=== PATIENT | female | born 1945 | race Two or more races ===

== ENCOUNTER 2016-10-10 16:17 | Emergency (ER) | payer MEDICARE, MEDICAID ==
[~2016-10-10] VITALS: Ht 162.6 cm; Wt 73.5 kg
[~2016-10-10 16:17] MED LIST: ALBU8.5H2 IH; AMLO5TAB2 PO; ARIP5TAB4 PO; BUDE10.22 IH; BUSP5TAB3 PO; DEXL60CA3 PO; DULO30CA2 PO; EZET10TA PO; HYDR-3326 PO; ICOS1CAP PO; INSU100V10 SQ; MEMA10TA PO; METF500T4 PO; PRAS10TA5 PO; QUET200T PO; ROSU20TA PO; SITA100T PO; SOLI10TA PO; VALS160T2 PO
--- NOTE | 2016-10-10 16:17 | NUR ---
PT BIB FAMILY, WHEELED TO ER BED 07 C/O LT SHOULDER AND RT ANKLE PAIN S/P MISSED A STEP WHILE GOING DOWN THE STAIRS AT HOME. DENIES HEAD TRAUMA. NO OTHER COMPLAINTS. VSS. AWAITING MD ANN.
--- NOTE | 2016-10-10 16:48 | NUR ---
DR SHAH AT BEDSIDE FOR EVAL.
[2016-10-10] MEDS ORDERED: HYDROCODONE/APAP 5/325MG 1 EACH TABLET ONE (16:55)
[2016-10-10] MEDS ORDERED: HYDROCODONE/APAP 5/325MG 1 EACH TABLET PO ONE (17:00)
--- NOTE | 2016-10-10 17:43 | NUR ---
RADIOLOGY AT BEDSIDE FOR LT SHOULDER AND RT ANKLE XRAY.
--- NOTE | 2016-10-10 19:06 | NUR ---
TOMAS BARRIGA AT BEDSIDE FOR SPLINT PLACEMENT.
--- NOTE | 2016-10-10 19:11 | NUR ---
Patient discharged to home in stable condition. Written and verbal after care instructions given. Patient verbalizes understanding of instruction.Crutches dispensed. Pt instructed on proper use of crutches. Patient able to demonstrate correct use of crutches.
[2016-10-10 19:12] VITALS: BP 147/91
== END 2016-10-10 19:13 | disposition home or self-care (01) ==
LOC: ER 16:19
DX: M25.571 Pain in right ankle and joints of right foot (principal); E11.9 Type 2 diabetes mellitus without complications; I10 Essential (primary) hypertension; I25.2 Old myocardial infarction; Z79.4 Long term (current) use of insulin; Z85.42 Personal history of malignant neoplasm of other parts of uterus; Z86.73 Personal history of transient ischemic attack (TIA), and cerebral infarction without residual deficits; W01.0XXA Fall on same level from slipping, tripping and stumbling without subsequent striking against object, initial encounter; Y93.01 Activity, walking, marching and hiking; Y92.89 Other specified places as the place of occurrence of the external cause; Y99.9 Unspecified external cause status
CPT/HCPCS: 29515; 73030; 73610; 99284; A4606; Z7610

== ENCOUNTER 2019-04-14 19:42 | Inpatient (IN) | payer MEDICARE, MEDICAID ==
[~2019-04-14] VITALS: Ht 154.9 cm; Wt 73.6 kg
[~2019-04-14 19:42] MED LIST changes: -ALBU8.5H2 IH; +ALBU8.5H8 IH; -AMLO5TAB2 PO; +AMLO5TAB9 PO; +ARIP5TAB10 PO; -ARIP5TAB4 PO; -EZET10TA PO; +EZET10TA16 PO; -HYDR-3326 PO; +HYDR-3974 PO; +METF-440 PO; -METF500T4 PO; -ROSU20TA PO; +ROSU20TA2 PO; -SOLI10TA PO; +SOLI10TA2 PO
[2019-04-14] MEDS ORDERED: IV NS 0.9% 1,000 ML BAG IV ONE ×2 (20:00→21:30)
[2019-04-14] MEDS ORDERED: ONDANSETRON HCL/PF 4 MG/2 ML VIAL IVP ONE (20:00)
[2019-04-14 20:09] LABS: BASOPHILS # (AUTO) 0.1 /CMM (0.0-0.2); BASOPHILS % (AUTO) 0.9 % (0.0-2.0); EOSINOPHILS % (AUTO) 2.9 % (0.0-6.0); HEMATOCRIT 44 % (33-45); HEMOGLOBIN 14.9 g/dL (11.5-14.8); LYMPHOCYTES % (AUTO) 39.4 % (20.0-44.0); MEAN CORPUSCULAR HGB CONC 34 g/dl (31.0-36.0); MEAN CORPUSCULAR VOLUME 94 fL (82-100); MONOCYTES # (AUTO) 0.7 /CMM (0.1-1.30); MONOCYTES % (AUTO) 6.9 % (2.0-12.0); NEUTROPHILS # (AUTO) 5.1 /CMM (1.8-8.9); NEUTROPHILS % (AUTO) 49.9 % (43.0-81.0); PLATELET COUNT (AUTO) 178 /CMM (150-450); RED BLOOD CELL COUNT(AUTO) 4.73 MIL/uL (4.0-5.2); WHITE BLOOD COUNT (AUTO) 10.2 K/uL (4.3-11.0)
[2019-04-14 20:18] LABS: CALCIUM, SERUM 9.9 mg/dL (8.5-10.1); CARBON DIOXIDE 23 mmol/L (21-32); CHLORIDE 101 mmol/L (98-107); GLUCOSE 222 mg/dL (74-106); POTASSIUM 3.9 mmol/L (3.5-5.1); SODIUM SERUM 137 mmol/L (136-145); UREA NITROGEN, BLOOD 23 mg/dL (7-18)
--- NOTE | 2019-04-14 20:18 | NUR ---
PT TO CT ON [place]
[2019-04-14] MEDS ORDERED: ONDANSETRON HCL/PF 4 MG/2 ML VIAL ONE (20:21)
[2019-04-14 20:24] LABS: ALANINE AMINOTRANSFERASE 39 U/L (12-78); ALBUMIN 4.1 g/dL (3.4-5.0); ALKALINE PHOSPHATASE 85 U/L (46-116); ASPARTATE AMINOTRANSFERASE 18 U/L (15-37); BILIRUBIN,DIRECT 0.1 mg/dL (0.0-0.2); BILIRUBIN,TOTAL 0.3 mg/dL (0.2-1.0); LIPASE 236 U/L (73-393); TOTAL PROTEIN, SERUM 7.9 g/dL (6.4-8.2)
--- NOTE | 2019-04-14 20:27 | NUR ---
PT BIB [facility]. TO ER BED 10. AAOX4. NO RESP DISTRESS NOTED. KAZAKH SPEAKING. NO FAMILY AT BEDSIDE. PER EMS PER, PT WAS NEAR SYNCOP[place] WHEN SHE WAS AT [facility]. PT GOT WEAK AND DAUGHTER ASSISTED HER TO GO DOWN. NO PASS OUT. TO TRAUMA. NO NOTED INJURY UPON PRESENTATION. MD WAS AT BEDSIDE FOR EVAL. ORDERS RECEIVED, NOTED AND CARRIED OUT.
--- NOTE | 2019-04-14 20:29 | NUR ---
PER EMS REPORT, PT RECEIVED 200CC IN [facility].
--- NOTE | 2019-04-14 20:56 | NUR ---
ANDREA SPEAKING WITH DR LUNA
[2019-04-14] MEDS ORDERED: ASPIRIN 325 MG TABLET PO ONE (21:00)
--- NOTE | 2019-04-14 21:00 | NUR ---
PT NOTED WITH ON RA. PLACE ON 2LPM VIA NC. MD AWARE Addendum: 04/14/19 at 2142 by EDAN PT SATTING AT 93%, NO RESP DISTRESS NOTED
--- NOTE | 2019-04-14 21:13 | NUR ---
327-2 [facility]
[2019-04-14] MEDS ORDERED: IV D5/ 0.9% NACL 1,000 ML IV PRN (21:30)
[2019-04-14] MEDS ORDERED: MORPHINE SULFATE INJ 2 MG/ML DISP.SYRIN IV PRN (21:30)
[2019-04-14] MEDS ORDERED: ONDANSETRON HCL/PF 4 MG/2 ML VIAL IVP PRN (21:30)
[2019-04-14] MEDS ORDERED: ALBUTEROL SULFATE INH 18 GM HFA.AER.AD IH PRN (21:30)
[2019-04-14 21:36] LABS: APPEARANCE,URINE Clear (CLEAR); BILIRUBIN,URINE SMALL (NEGATIVE); BLOOD, URINE Negative Ery/uL (NEGATIVE); COLOR,URINE Yellow (YELLOW); KETONES,URINE Trace (NEGATIVE); LEUKOCYTE ESTERASE ,URINE Negative (NEGATIVE); NITRITE, URINE Negative (NEGATIVE); PROTEIN,URINE 100 mg/dl (NEGATIVE); UGLUCOSE 500 MG/DL mg/dL (NEGATIVE); UROBILINOGEN,URINE 0.2 EU/dL (0.2)
[2019-04-14] MEDS ORDERED: ASPIRIN 325 MG TABLET ONE (21:46)
[2019-04-14 21:48] LABS: RBC,URINE 0-2 /HPF (0-2)
[2019-04-14 21:49] LABS: BACTERIA,URINE None seen /HPF (None Seen); MUCUS,URINE Many /LPF (None Seen); SQUAMOUS EPITHELIAL CELL,UR Many /HPF (None Seen); YEAST,URINE Few /HPF (None Seen)
--- NOTE | 2019-04-14 21:58 | NUR ---
US AT BEDSIDE
--- NOTE | 2019-04-14 22:22 | NUR ---
REPORT GIVEN TO KAREN HAY FOR VENU. PT TO 327-2
--- NOTE | 2019-04-14 22:29 | NUR ---
PT TO UNIT ON [facility] WITH EMT AT BEDSIDE. NAD NOTED. FAMILY AT BEDSIDE.
[2019-04-14 22:30] VITALS: BP 115/77
--- NOTE | 2019-04-14 22:40 | NUR ---
FELLED SEAM OPERATOR CHAINSTITCH ADMITTING NOTES RECEIVED PT FROM ER VIA [facility] [place], ABLE TO AMBULATE TO BED FROM [facility] [place], AWAKE ALERT ORIENTED X4, YAKUT SPEAKING. BREATHING EVEN AND UNLABORED ON 2L NC. NO CO,PLAINT OF PAIN OR DISCOMFORT AT THIS TIME. IV ACCESS ON THE R HAND 20G PATENT AND FLUSHING. COIN PURSE FRAMER IN PLACE, SR 1ST DEGREE AV BLOCK. NPO PER MD ORDERED. BED IN LOWEST LOCKED POSITION, CALL LIGHT WITHIN REACH AT ALL TIMES, WILL CONTINUE TO MONITOR FREQUENTLY.
[2019-04-15] VITALS: BP 131/79
[2019-04-15 04:00] VITALS: BP 127/77
--- NOTE | 2019-04-15 06:15 | NUR ---
CONTINUOUS IMPROVEMENT COORDINATOR CLOSING NOTES PT REMAINS IN BED, SLEEPING, EASILY AROUSED TO NAME CALL. BREATHING EVEN AND UNLABORED ON 2L NC. NO COMPLAINT OF PAIN OR DISCOMFORT AT THIS TIME. IV ACCESS ON THE R HAND 20G WITH D5NS @100ML/HR SAND OPERATOR IN PLACE, SR IN THE 80S 1ST DEGREE AV BLOCK. REMAINS NPO. BED IN LOWEST LOCKED POSITION, CALL LIGHT WITHIN REACH AT ALL TIMES, WILL ENDORSE TO DAY NURSE FOR VENU.
[2019-04-15 06:45] LABS: BASOPHILS # (AUTO) 0.1 /CMM (0.0-0.2); BASOPHILS % (AUTO) 0.6 % (0.0-2.0); EOSINOPHILS % (AUTO) 2.9 % (0.0-6.0); HEMATOCRIT 39 % (33-45); HEMOGLOBIN 13.2 g/dL (11.5-14.8); LYMPHOCYTES # (AUTO) 3.9 /CMM (0.8-4.8); LYMPHOCYTES % (AUTO) 40.5 % (20.0-44.0); MEAN CORPUSCULAR HGB CONC 34 g/dl (31.0-36.0); MEAN CORPUSCULAR VOLUME 94 fL (82-100); MONOCYTES # (AUTO) 0.7 /CMM (0.1-1.30); MONOCYTES % (AUTO) 7.3 % (2.0-12.0); NEUTROPHILS # (AUTO) 4.7 /CMM (1.8-8.9); NEUTROPHILS % (AUTO) 48.7 % (43.0-81.0); PLATELET COUNT (AUTO) 174 /CMM (150-450); RED BLOOD CELL COUNT(AUTO) 4.21 MIL/uL (4.0-5.2); WHITE BLOOD COUNT (AUTO) 9.6 K/uL (4.3-11.0)
--- NOTE | 2019-04-15 07:40 | NUR ---
RD MECHANICAL ENGINEER OPENING NOTES RECEIVED PT IN BED, AWAKE. A/O X3-4. ON SUPPLEMENTARY OXYGEN AT 2LPM VIA NC, WITH NO ACUTE RESPIRATORY DISTRESS NOTED. ON TELEMONITORING SR WITH HR OF 90. PER COMMUNITY ORGANIZER, PT HAD OCCASIONAL EPISODE OF 1ST DEGREE BLOCK LAST NIGHT. PT DENIES ANY PAIN OR DISCOMFORT AT THIS TIME. PT DENIES ANY QUESTIONS OR CONCERNS AT THE MOMENT. IVF D5NS AT 100ML/HR TO R HAND G20, INTACT AND FLUID INFUSING WELL. PT KEPT COMFORTABLE. CALL LIGHT KEPT WITHIN REACH. PT'S BED KEPT IN LOWEST LOCKED POSITION WITH SR X3. WILL CONTINUE PLAN OF CARE.
[2019-04-15 07:55] LABS: CALCIUM, SERUM 8.4 mg/dL (8.5-10.1); CREATININE 0.7 mg/dL (0.6-1.3); MAGNESIUM 1.4 mg/dL (1.8-2.4); PHOSPHORUS 3.6 mg/dL (2.5-4.9); POTASSIUM 3.4 mmol/L (3.5-5.1)
[2019-04-15 10:31] LABS: THYROID STIMULATING HORMONE 0.914 uIU/mL (0.358-3.74)
[2019-04-15] MEDS ORDERED: IOHEXOL-350 100 ML VIAL IV ONE (10:33)
[2019-04-15] MEDS ORDERED: IV NS 0.9% 250 ML IV ONE (10:33)
[2019-04-15] MEDS ORDERED: CT SWABBABLE VALVE TRANS SET 1 EA INFUS.SET MC ONE (10:33)
[2019-04-15] MEDS: Magnesium 1GM/D5W 100ML PREMIX 100 ML IV SCH ×4 (10:38→14:14)
[2019-04-15 11:00] VITALS: BP 106/59
[2019-04-15] MEDS: POTASSIUM CL. PREMIX PERIPHER. 50 ML IV SCH ×2 (11:51→13:05)
[2019-04-15] MEDS ORDERED: DEXTROSE 50%-WATER 50 ML DISP.SYRIN IV PRN ×2 (12:00→12:30)
[2019-04-15] MEDS ORDERED: BLOOD SUGAR DIAGNOSTIC 1 EACH STRIP IN SCH (12:00)
[2019-04-15] MEDS ORDERED: INSULIN REGULAR, HUMAN 100 UNIT/ML 3 ML VIAL SQ PRN (12:00)
[2019-04-15] MEDS ORDERED: ALBUTEROL FS 2.5 MG/0.5 ML VIAL.NEB NEB PRN (13:30)
[2019-04-15 16:00] VITALS: BP 117/64
[2019-04-15] MEDS: BLOOD SUGAR DIAGNOSTIC 1 EACH STRIP VI SCH ×2 (17:26→21:36)
[2019-04-15] MEDS: *INSULIN REGULAR(HUMULIN R)HUM 100 UNIT/ML VIAL SQ PRN ×2 (17:26→21:15)
--- NOTE | 2019-04-15 18:40 | NUR ---
MS RN CLOSING NOTES PT IN BED, AWAKE. A/O X3-4. TOLERATING RA, WITH NO ACUTE RESPIRATORY DISTRESS NOTED. PT DENIES ANY PAIN OR DISCOMFORT AT THIS TIME. PIV TO RFA G18, FLUSHED WITH NS, INTACT AND OPERATIONAL. ALL NEEDS AND CARE ATTENDED. PT KEPT COMFORTABLE. CALL LIGHT KEPT WITHIN REACH. PT'S BED KEPT IN LOWEST LOCKED POSITION WITH SR X3. WILL ENDORSE TO INCOMING NIGHT NURSE FOR VENU.
[2019-04-15 20:00] VITALS: BP 145/89
--- NOTE | 2019-04-15 20:00 | NUR ---
MS RN NOTES RECEIVED PATIENT AWAKE IN BED WITH NO DISTRESS NOTED. CALL LIGHT WITHIN REACH. FAMILY AT BEDSIDE. NO C/O PAIN OR DISCOMFORT. PERIPHERAL LINE INTACT AND PATENT. ENCOURAGED USED OF CALL LIGHT AND VERBALIZED GOOD UNDERSTANDING. BED IN LOW LOCK SETTING. WILL ENDORSE TO ONCOMING SHIFT.
[2019-04-16] MEDS: INSULIN REGULAR, HUMAN 100 UNIT/ML 3 ML VIAL SQ PRN ×2 (06:05→11:34)
--- NOTE | 2019-04-16 06:20 | NUR ---
MS RN NOTES PATIENT ASLEEP IN BED WITH NO DISTRESS NOTED. CALL LIGHT WITHIN REACH. ALL DUE MEDS GIVEN ORDERED WITH NO ASE. PERIPHERAL LINE INTACT AND PATENT. NO FURTHER C/O PAIN OR DISCOMFORT. ROOM FREE OF CLUTTER AND BELONGINGS KEPT NEAR BEDSIDE. BED IN LOW LOCK SETTING. WILL ENDORSE TO ONCOMING SHIFT.
[2019-04-16 06:22] LABS: BASOPHILS # (AUTO) 0.1 /CMM (0.0-0.2); EOSINOPHILS % (AUTO) 3.1 % (0.0-6.0); HEMATOCRIT 39 % (33-45); HEMOGLOBIN 13.2 g/dL (11.5-14.8); LYMPHOCYTES # (AUTO) 3.2 /CMM (0.8-4.8); LYMPHOCYTES % (AUTO) 41.7 % (20.0-44.0); MEAN CORPUSCULAR HGB CONC 34 g/dl (31.0-36.0); MEAN CORPUSCULAR VOLUME 93 fL (82-100); MONOCYTES # (AUTO) 0.5 /CMM (0.1-1.30); MONOCYTES % (AUTO) 6.9 % (2.0-12.0); NEUTROPHILS # (AUTO) 3.6 /CMM (1.8-8.9); NEUTROPHILS % (AUTO) 47.3 % (43.0-81.0); PLATELET COUNT (AUTO) 145 /CMM (150-450); RED BLOOD CELL COUNT(AUTO) 4.18 MIL/uL (4.0-5.2); WHITE BLOOD COUNT (AUTO) 7.7 K/uL (4.3-11.0)
[2019-04-16] MEDS: BLOOD SUGAR DIAGNOSTIC 1 EACH STRIP VI SCH ×2 (06:33→11:36)
[2019-04-16 07:30] VITALS: BP 130/90
--- NOTE | 2019-04-16 07:35 | NUR ---
MS RN OPENING NOTES RECEIVED PT IN BED, AWAKE. A/O X3-4. TOLERATING RA, WITH NO ACUTE RESPIRATORY DISTRESS NOTED. PT DENIES ANY PAIN OR DISCOMFORT AT THIS MOMENT. PT DENIES ANY QUESTIONS OR CONCERNS AT THIS TIME. PIV TO RFA G20, FLUSHED WITH NS, INTACT AND OPERATIONAL. PT KEPT COMFORTABLE. CALL LIGHT KEPT WITHIN REACH. PT'S BED KEPT IN LOWEST LOCKED POSITION WITH SR X3. WILL CONTINUE PLAN OF CARE.
--- NOTE | 2019-04-16 08:58 | NUR ---
MS RN NOTES PT SEEN BY MD/SK AND PT MADE AWARE PLAN FOR DISCHARGE ONCE OR SENIOR SYSTEMS DEVELOPER/URIAH CASTRO CLEARANCE FOR DISCHARGE.
[2019-04-16 10:11] LABS: CALCIUM, SERUM 9.4 mg/dL (8.5-10.1); CREATININE 0.8 mg/dL (0.6-1.3); MAGNESIUM 1.9 mg/dL (1.8-2.4); PHOSPHORUS 3.3 mg/dL (2.5-4.9); POTASSIUM 3.9 mmol/L (3.5-5.1)
--- NOTE | 2019-04-16 15:55 | NUR ---
MS ECOMMERCE ANALYST NOTES PT TO DISCHARGE TO HOME. DAUGHTER WAS PRESENT TO ACCOMPANY HER TO GO HOME. PT A/O X4. TOLERATING RA, WITH NO ACUTE RESPIRATORY DISTRESS NOTED. PT DENIES ANY PAIN OR DISCOMFORT AT THE TIME OF DISCHARGE. DISCHARGE INSTRUCTIONS AND INVENTORY LIST SIGNED BY THE DAUGHTER. F/U CLINIC INFO PROVIDED TO PT. ALL NEEDS AND CARE ATTENDED. PT'S RFA PIV REMOVED, APPLIED DRY DRESSING. SKIN INTACT, NO PICTURES TAKEN AND FILED. MD/SK AWARE OF DISCHARGE. PT LEFT THE UNIT AMBULATORY ACCOMPANIED BY BURIAL NEEDS SALESPERSON AND DAUGHTER TO THE LOBBY. LEFT THE UNIT AT 1545. VS STABLE AND RECORDED.
== END 2019-04-16 15:49 | disposition home or self-care (01) | DRG 392 ==
LOC: ER 19:43 → MED 21:40 → TELE 22:34 → MED 04-15 11:33
PROVIDERS: ATTEND Student in an Organized Health Care Education/Training Program
DX: K21.9 Gastro-esophageal reflux disease without esophagitis (principal); E87.2 Acidosis; I10 Essential (primary) hypertension; E78.5 Hyperlipidemia, unspecified; I25.10 Atherosclerotic heart disease of native coronary artery without angina pectoris; I25.2 Old myocardial infarction; Z90.6 Acquired absence of other parts of urinary tract; E11.9 Type 2 diabetes mellitus without complications; Z90.710 Acquired absence of both cervix and uterus; Z90.49 Acquired absence of other specified parts of digestive tract; Z85.42 Personal history of malignant neoplasm of other parts of uterus; Z86.73 Personal history of transient ischemic attack (TIA), and cerebral infarction without residual deficits; Z79.51 Long term (current) use of inhaled steroids; Z79.4 Long term (current) use of insulin; Z79.02 Long term (current) use of antithrombotics/antiplatelets; Z98.890 Other specified postprocedural states; Z79.84 Long term (current) use of oral hypoglycemic drugs; Z79.899 Other long term (current) drug therapy; E83.51 Hypocalcemia; E87.6 Hypokalemia; K59.00 Constipation, unspecified; K40.90 Unilateral inguinal hernia, without obstruction or gangrene, not specified as recurrent; K57.30 Diverticulosis of large intestine without perforation or abscess without bleeding; M46.96 Unspecified inflammatory spondylopathy, lumbar region; M47.9 Spondylosis, unspecified; M41.9 Scoliosis, unspecified
CPT/HCPCS: 36415; 71045-TC; 80048-TC; 80061-TC; 80076-TC; 81000-TC; 82962-TC; 83605-TC; 83690-TC; 83735-TC; 83880; 84100-TC; 84443-TC; 84484-TC; 85025-TC; 87040-TC; 87081-TC; 87086-TC; 93307-TC; 97116-TC; 97530-TC; G0378; J1815; J2270; J2405; J3475; J3480; J7030; J7042; J7050; Q9967

== ENCOUNTER 2019-07-31 15:23 | Emergency (ER) | payer MEDICARE, MEDICAID ==
[~2019-07-31] VITALS: Ht 162.6 cm; Wt 73.5 kg
--- NOTE | 2019-07-31 15:40 | NUR ---
R SIDED HEAD AND R SHOULDER PAIN S/P SLIP AND FALL IN THE SHOWER. PATIENT A/OX2-3, MAURITANIAN SPEAKING, NO DISTRESS NOTED, CHANGED INTO GOWN, ATTACHED TO THE MEDICAL STAFF MANAGER.
--- NOTE | 2019-07-31 16:14 | NUR ---
Susannah storey in [facility] - 07/31/19 at 1615 by LAUREN URINE SENT TO LAB
--- NOTE | 2019-07-31 16:16 | NUR ---
PATIENT TAKEN TO CT.
[2019-07-31] MEDS ORDERED: ACETAMINOPHEN 325 MG TABLET ONE (16:17)
[2019-07-31] MEDS ORDERED: TOLT4CAP PO (16:27)
[2019-07-31] MEDS ORDERED: FLUT1DIS3 IH (16:27)
[2019-07-31] MEDS ORDERED: RIVA10TA PO (16:27)
[2019-07-31] MEDS ORDERED: CARV6.252 PO (16:27)
[2019-07-31] MEDS ORDERED: LATA2.5D7 OP (16:27)
[2019-07-31] MEDS ORDERED: ICOS1CAP PO (16:27)
[2019-07-31] MEDS ORDERED: LISI-603 PO (16:27)
[2019-07-31] MEDS ORDERED: BENZ-13 PO (16:27)
[2019-07-31] MEDS ORDERED: ACETAMINOPHEN 650 MG/20.3 ML UDC PO ONE (16:30)
--- NOTE | 2019-07-31 17:51 | NUR ---
MD EXPLAINED RESULT TO FAMILY AND PATIENT, AND BOTH VERBALIZED UNDERSTANDING.
--- NOTE | 2019-07-31 18:29 | NUR ---
Patient awake and alert a/ox4, ambulatory with slow but steady gait. IV removed. Catheter intact and site benign. Pressure and 4x4 applied to site. No bleeding noted.Patient discharged to home in stable condition. Written and verbal after care instructions given. Patient verbalizes understanding of instruction.
[2019-07-31 18:30] VITALS: BP 138/89
== END 2019-07-31 18:30 | disposition home or self-care (01) ==
LOC: ER 15:31
DX: S09.8XXA Other specified injuries of head, initial encounter (principal); M25.511 Pain in right shoulder; M25.551 Pain in right hip; I25.2 Old myocardial infarction; E11.9 Type 2 diabetes mellitus without complications; I10 Essential (primary) hypertension; Z79.899 Other long term (current) drug therapy; Z79.4 Long term (current) use of insulin; Z85.50 Personal history of malignant neoplasm of unspecified urinary tract organ; Z90.710 Acquired absence of both cervix and uterus; Z98.890 Other specified postprocedural states; Z86.73 Personal history of transient ischemic attack (TIA), and cerebral infarction without residual deficits; X58.XXXA Exposure to other specified factors, initial encounter; Y93.89 Activity, other specified; Y92.89 Other specified places as the place of occurrence of the external cause; Y99.8 Other external cause status
CPT/HCPCS: 70450-TC; 72125-TC; 73030-TC; 73501; 73502

== ENCOUNTER 2023-11-20 00:07 | Inpatient (IN) | payer MEDICARE, OTHER ==
[2023-11-20] VITALS (8 sets, daily range): BP systolic 118–142; BP diastolic 69–95; TEMP 97.5–98.4; O2SAT 93–98
[~2023-11-20] VITALS: Ht 165.1 cm; Wt 79.8 kg
[~2023-11-20 00:07] MED LIST changes: -ALBU8.5H8 IH; +AMLO-212 PO; -AMLO5TAB9 PO; -ARIP5TAB10 PO; +BENZ-13 PO; -BUDE10.22 IH; -BUSP5TAB3 PO; +CARV6.252 PO; -DULO30CA2 PO; -EZET10TA16 PO; +FLUT1DIS3 IH; -HYDR-3974 PO; +LATA2.5D15 OP; +LISI20TA30 PO; -MEMA10TA PO; -PRAS10TA5 PO; -QUET200T PO; +RIVA10TA PO; -ROSU20TA2 PO; -SOLI10TA2 PO; +TOLT4CAP PO; -VALS160T2 PO
[2023-11-20 01:04] LABS: BASOPHILS % (AUTO) 0.4 % (0.0-2.0); EOSINOPHILS # (AUTO) 0.3 K/uL (0.0-0.7); EOSINOPHILS % (AUTO) 2.7 % (0.0-6.0); HEMATOCRIT 41 % (33-45); HEMOGLOBIN 13.2 g/dL (11.5-14.8); LYMPHOCYTES # (AUTO) 4.1 K/uL (0.8-4.8); LYMPHOCYTES % (AUTO) 37.4 % (20.0-44.0); MEAN CORPUSCULAR HEMOGLOBIN 29 PG (26.0-33.0); MEAN CORPUSCULAR HGB CONC 33 g/dl (31.0-36.0); MEAN CORPUSCULAR VOLUME 90 fL (82-100); MONOCYTES # (AUTO) 0.8 K/uL (0.1-1.30); MONOCYTES % (AUTO) 7.3 % (2.0-12.0); NEUTROPHILS # (AUTO) 5.8 K/uL (1.8-8.9); NEUTROPHILS % (AUTO) 52.2 % (43.0-81.0); PLATELET COUNT (AUTO) 195 K/uL (150-450); RED BLOOD CELL COUNT(AUTO) 4.52 MIL/uL (4.0-5.2); RED CELL DISTRIBUTION WIDTH 15.7 % (11.5-15.0)
[2023-11-20 01:33] LABS: CALCIUM, SERUM 8.9 mg/dL (8.5-10.1); CARBON DIOXIDE 23 mmol/L (21-32); CHLORIDE 102 mmol/L (98-107); CREATININE 1.3 mg/dL (0.6-1.3); GLUCOSE 218 mg/dL (74-106); POTASSIUM 3.9 mmol/L (3.5-5.1); SODIUM SERUM 135 mmol/L (136-145); UREA NITROGEN, BLOOD 18 mg/dL (7-18)
[2023-11-20 01:40] LABS: ALANINE AMINOTRANSFERASE 36 U/L (12-78); ALKALINE PHOSPHATASE 84 U/L (46-116); ASPARTATE AMINOTRANSFERASE 15 U/L (15-37); BILIRUBIN,DIRECT 0.1 mg/dL (0.0-0.2); BILIRUBIN,TOTAL 0.3 mg/dL (0.2-1.0); LIPASE 55 U/L (16-77); TOTAL PROTEIN, SERUM 7.5 g/dL (6.4-8.2)
[2023-11-20] MEDS ORDERED: LIDOCAINE VISCOUS 2% UD 15 ML UDC ONE (01:57)
[2023-11-20] MEDS ORDERED: MAG HYDROX/AL HYDROX/SIMETH 30 ML UDC ONE (01:57)
[2023-11-20] MEDS: MAG HYDROX/AL HYDROX/SIMETH 30 ML UDC PO ONE (01:58)
[2023-11-20] MEDS: LIDOCAINE VISCOUS 2% UD 15 ML UDC MM ONE (01:58)
[2023-11-20 02:17] LABS: APPEARANCE,URINE CLEAR (CLEAR); BILIRUBIN,URINE 1+ (NEGATIVE); BLOOD, URINE 3+ Ery/uL (NEGATIVE); COLOR,URINE YELLOW (YELLOW); KETONES,URINE TRACE mg/dL (NEGATIVE); LEUKOCYTE ESTERASE ,URINE 2+ (NEGATIVE); NITRITE, URINE NEGATIVE (NEGATIVE); PROTEIN,URINE 2+ mg/dl (NEGATIVE); UGLUCOSE NEGATIVE (NEGATIVE); UROBILINOGEN,URINE 0.2 EU/dL (0.2)
[2023-11-20] MEDS ORDERED: DEXTROSE 50%-WATER 50 ML DISP.SYRIN IV PRN (03:30)
[2023-11-20] MEDS ORDERED: ACETAMINOPHEN 325 MG TABLET PO PRN (03:30)
[2023-11-20] MEDS ORDERED: ONDANSETRON HCL/PF 4 MG/2 ML VIAL IVP PRN (03:30)
[2023-11-20] MEDS ORDERED: BENZONATATE 100 MG CAPSULE PO PRN (03:30)
[2023-11-20] MEDS: IV NS 0.9% 1,000 ML IV PRN (03:49)
[2023-11-20] MEDS: CEFTRIAXONE 1GM BAG (ER ONLY) 50 ML IV ONE (04:09)
[2023-11-20] MEDS: BLOOD SUGAR DIAGNOSTIC 1 EACH STRIP VI SCH (04:10)
[2023-11-20] MEDS: CEFTRIAXONE 1 G in IV D5W 50 ML IV SCH (04:11)
[2023-11-20 06:10] LABS: ADD URINE CULTURE YES; BACTERIA,URINE 3+ /HPF (None Seen); MUCUS,URINE Moderate /LPF (None Seen); RBC,URINE 51-80 /HPF (0-2); WBC,URINE 21-50 /HPF (0-3)
[2023-11-20] MEDS: INSULIN REGULAR, HUMAN 100 UNIT/ML 3 ML VIAL SQ PRN (06:37)
[2023-11-20 08:05] LABS: THYROID STIMULATING HORMONE 2.526 uIU/mL (0.358-3.74)
[2023-11-20] MEDS: LINAGLIPTIN 5 MG TABLET PO SCH (08:38)
[2023-11-20] MEDS: ASPIRIN EC 81 MG TABLET.DR PO SCH (08:38)
[2023-11-20] MEDS: TOLTERODINE 2 MG CAP.SR PO SCH (08:38)
[2023-11-20] MEDS: PANTOPRAZOLE 40 MG TABLET.DR PO SCH (08:38)
[2023-11-20] MEDS: CARVEDILOL 6.25 MG TABLET PO SCH ×2 (08:39→17:11)
[2023-11-20] MEDS: LISINOPRIL (20MG) 20 MG TABLET PO SCH (08:39)
[2023-11-20] MEDS: AMLODIPINE BESYLATE 5 MG TABLET PO SCH (08:39)
[2023-11-20] MEDS: RIVAROXABAN 10 MG TABLET PO SCH (08:43)
[2023-11-20] MEDS ORDERED: SITA1TAB2 PO (09:06)
[2023-11-20] MEDS ORDERED: RIVA2.5T PO (09:06)
[2023-11-20] MEDS ORDERED: INSU100I47 SQ (09:06)
[2023-11-20] MEDS: ATORVASTATIN 40 MG TABLET PO SCH (10:07)
[2023-11-20] MEDS: FLUTICASONE/VILANTEROL 1 EACH BLST.W.DEV IH SCH (10:41)
[2023-11-20] MEDS: INSULIN GLARGINE, 100 UNIT/ML CARTRIDGE SQ SCH (22:00)
[2023-11-20] MEDS: LATANOPROST EYE DROP 0.005% 2.5 ML BOTTLE EACHEYE SCH (22:05)
[2023-11-20] MEDS: *INSULIN REGULAR(HUMULIN R)HUM 100 UNIT/ML VIAL SQ PRN (22:28)
[2023-11-21] VITALS (8 sets, daily range): BP systolic 111–140; BP diastolic 63–84; TEMP 97.7–98.6; O2SAT 92–98
[2023-11-21 03:20] LABS: BASOPHILS # (AUTO) 0.1 K/uL (0.0-0.2); BASOPHILS % (AUTO) 0.6 % (0.0-2.0); EOSINOPHILS # (AUTO) 0.3 K/uL (0.0-0.7); EOSINOPHILS % (AUTO) 3.9 % (0.0-6.0); HEMATOCRIT 36 % (33-45); HEMOGLOBIN 11.8 g/dL (11.5-14.8); LYMPHOCYTES # (AUTO) 2.7 K/uL (0.8-4.8); LYMPHOCYTES % (AUTO) 32.7 % (20.0-44.0); MEAN CORPUSCULAR HEMOGLOBIN 29 PG (26.0-33.0); MEAN CORPUSCULAR HGB CONC 33 g/dl (31.0-36.0); MEAN CORPUSCULAR VOLUME 89 fL (82-100); MONOCYTES # (AUTO) 0.7 K/uL (0.1-1.30); MONOCYTES % (AUTO) 8.4 % (2.0-12.0); NEUTROPHILS # (AUTO) 4.5 K/uL (1.8-8.9); NEUTROPHILS % (AUTO) 54.4 % (43.0-81.0); PLATELET COUNT (AUTO) 157 K/uL (150-450); RED BLOOD CELL COUNT(AUTO) 4.05 MIL/uL (4.0-5.2); RED CELL DISTRIBUTION WIDTH 15.5 % (11.5-15.0); WHITE BLOOD COUNT (AUTO) 8.3 K/uL (4.3-11.0)
[2023-11-21 03:37] LABS: CALCIUM, SERUM 7.6 mg/dL (8.5-10.1); CREATININE 1.2 mg/dL (0.6-1.3); MAGNESIUM 1.5 mg/dL (1.8-2.4); PHOSPHORUS 2.9 mg/dL (2.5-4.9); POTASSIUM 3.8 mmol/L (3.5-5.1)
[2023-11-21] MEDS: RIVAROXABAN 10 MG TABLET PO SCH (08:39)
[2023-11-21] MEDS: Magnesium 1GM/D5W 100ML PREMIX 100 ML IV SCH (09:23)
[2023-11-21] MEDS: CARVEDILOL 12.5 MG TABLET PO SCH (09:23)
[2023-11-21] MEDS ORDERED: IOHEXOL-350 100 ML VIAL IV ONE (13:40)
[2023-11-21] MEDS ORDERED: CT SWABBABLE VALVE TRANS SET 1 EA INFUS.SET MC ONE (13:41)
[2023-11-21] MEDS ORDERED: METOPROLOL TARTRATE INJ 5 MG/5 ML AMPUL ONE ×2 (13:41→14:55)
[2023-11-21] MEDS ORDERED: NITROGLYCERIN 0.4 MG/TAB BOTTLE ONE (13:41)
[2023-11-21] MEDS: METOPROLOL TARTRATE INJ 5 MG/5 ML AMPUL IVP PRN (14:45)
[2023-11-21] MEDS: NITROGLYCERIN 0.4 MG/TAB BOTTLE SL ONE (15:06)
[2023-11-22] VITALS (9 sets, daily range): BP systolic 127–154; BP diastolic 76–88; TEMP 97.9–98.5; O2SAT 94–96
[2023-11-22] MEDS: Z GUARD REMEDY 4 OZ OINT TP PRN (00:58)
[2023-11-22] MEDS ORDERED: NITR100C6 PO (10:36)
== END 2023-11-22 17:51 | disposition home health service (06) | DRG 689 ==
LOC: ER 00:10 → TELE 02:03
PROVIDERS: ADMIT Internal Medicine; ATTEND Internal Medicine
DX: N39.0 Urinary tract infection, site not specified (principal); I21.A1 Myocardial infarction type 2; E87.1 Hypo-osmolality and hyponatremia; N17.9 Acute kidney failure, unspecified; Z86.73 Personal history of transient ischemic attack (TIA), and cerebral infarction without residual deficits; I10 Essential (primary) hypertension; Z95.5 Presence of coronary angioplasty implant and graft; I25.2 Old myocardial infarction; Z90.710 Acquired absence of both cervix and uterus; Z85.42 Personal history of malignant neoplasm of other parts of uterus; Z98.890 Other specified postprocedural states; Z79.51 Long term (current) use of inhaled steroids; Z79.01 Long term (current) use of anticoagulants; Z79.4 Long term (current) use of insulin; Z79.84 Long term (current) use of oral hypoglycemic drugs; Z79.899 Other long term (current) drug therapy; B96.89 Other specified bacterial agents as the cause of diseases classified elsewhere; E11.65 Type 2 diabetes mellitus with hyperglycemia; E78.5 Hyperlipidemia, unspecified; I25.10 Atherosclerotic heart disease of native coronary artery without angina pectoris; M89.8X9 Other specified disorders of bone, unspecified site; E83.42 Hypomagnesemia
CPT/HCPCS: 36415; 71045-TC; 72131-TC; 75574; 80048-TC; 80061-TC; 80076-TC; 81001; 82962-TC; 83540-TC; 83690-TC; 83735-TC; 83880; 84100-TC; 84443-TC; 84484-TC; 85025-TC; 87086-TC; 93307-TC; 94760-TC; 94799-TC; A4223; G0378; J0696; J1815; J3475; J3490; J7030; J7060; Q9967

== ENCOUNTER 2024-07-07 22:39 | Inpatient (IN) | payer MEDICARE, OTHER ==
[~2024-07-07] VITALS: Ht 157.5 cm; Wt 79.5 kg
[~2024-07-07 22:39] MED LIST changes: +INSU100I47 SQ; +LATA2.5D15 EACHEYE; -LATA2.5D15 OP; -METF-440 PO; +NITR100C6 PO; -RIVA10TA PO; +RIVA2.5T PO; -SITA100T PO; +SITA1TAB2 PO
[2024-07-08 00:11] LABS: BASOPHILS # (AUTO) 0.1 K/uL (0.0-0.2); BASOPHILS % (AUTO) 0.7 % (0.0-2.0); EOSINOPHILS # (AUTO) 0.4 K/uL (0.0-0.7); EOSINOPHILS % (AUTO) 3.3 % (0.0-6.0); HEMATOCRIT 37 % (33-45); HEMOGLOBIN 12.3 g/dL (11.5-14.8); LYMPHOCYTES # (AUTO) 3.5 K/uL (0.8-4.8); LYMPHOCYTES % (AUTO) 30.1 % (20.0-44.0); MEAN CORPUSCULAR HEMOGLOBIN 30 PG (26.0-33.0); MEAN CORPUSCULAR HGB CONC 33 g/dl (31.0-36.0); MEAN CORPUSCULAR VOLUME 90 fL (82-100); MONOCYTES # (AUTO) 0.9 K/uL (0.1-1.30); MONOCYTES % (AUTO) 7.8 % (2.0-12.0); NEUTROPHILS # (AUTO) 6.8 K/uL (1.8-8.9); NEUTROPHILS % (AUTO) 58.1 % (43.0-81.0); PLATELET COUNT (AUTO) 200 K/uL (150-450); RED BLOOD CELL COUNT(AUTO) 4.09 MIL/uL (4.0-5.2); RED CELL DISTRIBUTION WIDTH 15.6 % (11.5-15.0); WHITE BLOOD COUNT (AUTO) 11.6 K/uL (4.3-11.0)
[2024-07-08 01:12] LABS: CALCIUM, SERUM 9.3 mg/dL (8.5-10.1); CARBON DIOXIDE 26 mmol/L (21-32); CHLORIDE 105 mmol/L (98-107); CREATININE 0.9 mg/dL (0.6-1.3); GLUCOSE 260 mg/dL (74-106); POTASSIUM 3.9 mmol/L (3.5-5.1); SODIUM SERUM 140 mmol/L (136-145); UREA NITROGEN, BLOOD 17 mg/dL (7-18)
[2024-07-08 01:17] LABS: ALANINE AMINOTRANSFERASE 35 U/L (12-78); ALBUMIN 3.4 g/dL (3.4-5.0); ALKALINE PHOSPHATASE 64 U/L (46-116); ASPARTATE AMINOTRANSFERASE 25 U/L (15-37); BILIRUBIN,DIRECT 0.1 mg/dL (0.0-0.2); BILIRUBIN,TOTAL 0.2 mg/dL (0.2-1.0); TOTAL PROTEIN, SERUM 7.3 g/dL (6.4-8.2)
[2024-07-08 04:44] LABS: APPEARANCE,URINE SLIGHTLY CLOUDY (CLEAR); BILIRUBIN,URINE NEGATIVE (NEGATIVE); BLOOD, URINE 3+ Ery/uL (NEGATIVE); COLOR,URINE YELLOW (YELLOW); KETONES,URINE NEGATIVE (NEGATIVE); LEUKOCYTE ESTERASE ,URINE 2+ (NEGATIVE); NITRITE, URINE NEGATIVE (NEGATIVE); PROTEIN,URINE TRACE mg/dl (NEGATIVE); UGLUCOSE 1+ mg/dL (NEGATIVE); UROBILINOGEN,URINE 0.2 EU/dL (0.2)
[2024-07-08 04:56] LABS: ADD URINE CULTURE YES; BACTERIA,URINE 3+ /HPF (None Seen); RBC,URINE 21-50 /HPF (0-2)
[2024-07-08 04:57] LABS: WBC,URINE 51-80 /HPF (0-3)
[2024-07-08] MEDS ORDERED: CEFTRIAXONE 1GM BAG (ER ONLY) 50 ML IV ONE (04:58)
[2024-07-08] MEDS: CEFTRIAXONE 1GM BAG (ER ONLY) 1 GM/50 ML PIGGYBACK IV ONE (05:00)
[2024-07-08] MEDS ORDERED: ZOLPIDEM TARTRATE 5 MG TABLET PO PRN (05:30)
[2024-07-08] MEDS ORDERED: ONDANSETRON HCL/PF 4 MG/2 ML VIAL IVP PRN (05:30)
[2024-07-08] MEDS ORDERED: MAGNESIUM HYDROXIDE 30 ML UDC PO PRN (05:30)
[2024-07-08] MEDS ORDERED: MAG HYDROX/AL HYDROX/SIMETH 30 ML UDC PO PRN (05:30)
[2024-07-08] MEDS ORDERED: Z GUARD REMEDY 4 OZ OINT TP PRN (05:30)
[2024-07-08] MEDS ORDERED: BLOOD SUGAR DIAGNOSTIC 1 EACH STRIP IN SCH ×2 (07:30→12:00)
[2024-07-08] MEDS ORDERED: INSULIN REGULAR, HUMAN 100 UNIT/ML 3 ML VIAL SQ PRN (07:30)
[2024-07-08] MEDS ORDERED: DEXTROSE 50%-WATER 50 ML DISP.SYRIN IV PRN ×2 (07:30)
[2024-07-08] MEDS ORDERED: INSULIN REGULAR, HUMAN 100 UNIT/ML 10 ML VIAL SQ SCH (07:30)
[2024-07-08] MEDS: PANTOPRAZOLE 40 MG TABLET.DR PO SCH (07:45)
[2024-07-08] MEDS: BLOOD SUGAR DIAGNOSTIC 1 EACH STRIP VI SCH (07:46)
[2024-07-08] MEDS: INSULIN REGULAR, HUMAN 100 UNIT/ML 3 ML VIAL SQ PRN (07:48)
[2024-07-08] MEDS: IV NS 0.9% 1,000 ML IV PRN (09:05)
[2024-07-08] MEDS: CARVEDILOL 6.25 MG TABLET PO SCH (09:06)
[2024-07-08] MEDS: AMLODIPINE BESYLATE 5 MG TABLET PO SCH (09:06)
[2024-07-08] MEDS: LISINOPRIL (20MG) 20 MG TABLET PO SCH (09:07)
[2024-07-08 10:12] LABS: BASOPHILS # (AUTO) 0.1 K/uL (0.0-0.2); BASOPHILS % (AUTO) 0.8 % (0.0-2.0); EOSINOPHILS # (AUTO) 0.3 K/uL (0.0-0.7); EOSINOPHILS % (AUTO) 3.5 % (0.0-6.0); HEMATOCRIT 38 % (33-45); HEMOGLOBIN 12.6 g/dL (11.5-14.8); LYMPHOCYTES # (AUTO) 2.9 K/uL (0.8-4.8); LYMPHOCYTES % (AUTO) 29.8 % (20.0-44.0); MEAN CORPUSCULAR HEMOGLOBIN 30 PG (26.0-33.0); MEAN CORPUSCULAR HGB CONC 33 g/dl (31.0-36.0); MEAN CORPUSCULAR VOLUME 91 fL (82-100); MONOCYTES # (AUTO) 0.8 K/uL (0.1-1.30); MONOCYTES % (AUTO) 7.9 % (2.0-12.0); NEUTROPHILS # (AUTO) 5.6 K/uL (1.8-8.9); PLATELET COUNT (AUTO) 193 K/uL (150-450); RED BLOOD CELL COUNT(AUTO) 4.21 MIL/uL (4.0-5.2); RED CELL DISTRIBUTION WIDTH 15.4 % (11.5-15.0); WHITE BLOOD COUNT (AUTO) 9.7 K/uL (4.3-11.0)
[2024-07-08 10:25] LABS: CALCIUM, SERUM 9.5 mg/dL (8.5-10.1); CREATININE 0.9 mg/dL (0.6-1.3); MAGNESIUM 1.7 mg/dL (1.8-2.4); PHOSPHORUS 2.2 mg/dL (2.5-4.9); POTASSIUM 3.3 mmol/L (3.5-5.1)
[2024-07-08 11:44] LABS: THYROID STIMULATING HORMONE 2.28 uIU/mL (0.358-3.74)
[2024-07-08] MEDS ORDERED: IV NS 0.9% 250 ML IV ONE (13:10)
[2024-07-08] MEDS ORDERED: IOHEXOL-350 100 ML VIAL IV ONE (13:10)
[2024-07-08] MEDS ORDERED: CT SWABBABLE VALVE TRANS SET 1 EA INFUS.SET MC ONE (13:10)
[2024-07-08] MEDS ORDERED: RIVA15TA PO (15:29)
[2024-07-08] MEDS ORDERED: SENN-261 PO (15:29)
[2024-07-08] MEDS ORDERED: ERGO500093 PO (15:29)
[2024-07-08] MEDS ORDERED: INSU100I26 SQ (15:29)
[2024-07-08] MEDS ORDERED: LOSA50TA39 PO (15:29)
[2024-07-08] MEDS ORDERED: METO50TA16 PO (15:29)
[2024-07-08] MEDS ORDERED: EVOL140P3 SQ (15:29)
[2024-07-08] MEDS ORDERED: ALBU8.5H8 IH (15:29)
[2024-07-08] MEDS ORDERED: SITA1TAB6 PO (15:29)
[2024-07-08] MEDS: K PHOS NEUTRAL 250 MG TABLET PO ONE (15:56)
[2024-07-08] MEDS: MAGNESIUM OXIDE 400 MG TABLET PO ONE (15:56)
[2024-07-08 16:00] VITALS: BP 123/73; TEMP 98.3; O2SAT 93
[2024-07-08] MEDS ORDERED: GUAIFENESIN/CODEINE 10 ML UDC PO PRN (17:00)
[2024-07-08 20:00] VITALS: BP 140/83; TEMP 97.7; O2SAT 93
[2024-07-08 20:42] VITALS: BP 140/83; TEMP 97.7; O2SAT 93
[2024-07-08] MEDS: *INSULIN REGULAR(HUMULIN R)HUM 100 UNIT/ML VIAL SQ PRN (22:09)
[2024-07-08] MEDS: ACETAMINOPHEN 325 MG TABLET PO PRN (23:21)
[2024-07-09] MEDS: CEFTRIAXONE 1 G in IV D5W 50 ML IV SCH (04:26)
[2024-07-09 08:00] VITALS: BP 157/83; TEMP 97.3; O2SAT 95
[2024-07-09 11:10] LABS: FOLIC ACID 6.8 ng/mL (>3.0)
[2024-07-09 14:59] LABS: BASOPHILS # (AUTO) 0.1 K/uL (0.0-0.2); BASOPHILS % (AUTO) 0.7 % (0.0-2.0); EOSINOPHILS # (AUTO) 0.2 K/uL (0.0-0.7); EOSINOPHILS % (AUTO) 3.1 % (0.0-6.0); HEMATOCRIT 32 % (33-45); HEMOGLOBIN 10.9 g/dL (11.5-14.8); LYMPHOCYTES # (AUTO) 2.1 K/uL (0.8-4.8); LYMPHOCYTES % (AUTO) 29.6 % (20.0-44.0); MEAN CORPUSCULAR HEMOGLOBIN 31 PG (26.0-33.0); MEAN CORPUSCULAR HGB CONC 34 g/dl (31.0-36.0); MEAN CORPUSCULAR VOLUME 90 fL (82-100); MONOCYTES # (AUTO) 0.5 K/uL (0.1-1.30); MONOCYTES % (AUTO) 7.5 % (2.0-12.0); NEUTROPHILS # (AUTO) 4.3 K/uL (1.8-8.9); NEUTROPHILS % (AUTO) 59.1 % (43.0-81.0); PLATELET COUNT (AUTO) 157 K/uL (150-450); RED BLOOD CELL COUNT(AUTO) 3.56 MIL/uL (4.0-5.2); RED CELL DISTRIBUTION WIDTH 15.6 % (11.5-15.0); WHITE BLOOD COUNT (AUTO) 7.2 K/uL (4.3-11.0)
[2024-07-09 15:11] LABS: CALCIUM, SERUM 7.4 mg/dL (8.5-10.1); CREATININE 0.9 mg/dL (0.6-1.3); MAGNESIUM 1.5 mg/dL (1.8-2.4); PHOSPHORUS 2.6 mg/dL (2.5-4.9)
[2024-07-09 15:17] LABS: POTASSIUM 2.8 mmol/L (3.5-5.1)
[2024-07-09 16:00] VITALS: BP 137/76; TEMP 97.5; O2SAT 92
[2024-07-09 20:00] VITALS: BP 142/87; TEMP 97.7; O2SAT 93
[2024-07-09] MEDS: POTASSIUM CHLORIDE 20 MEQ TAB.PRT.SR PO SCH (20:08)
[2024-07-09] MEDS: ENOXAPARIN SODIUM 40 MG/0.4 ML DISP.SYRIN SQ SCH (21:06)
[2024-07-10 08:00] VITALS: BP 155/87; TEMP 97.6; O2SAT 93
[2024-07-10] MEDS: RIVAROXABAN 15 MG TABLET PO SCH (13:24)
[2024-07-10 16:00] VITALS: BP 149/82; TEMP 98.1; O2SAT 94
[2024-07-10 20:00] VITALS: BP 139/86; TEMP 98.1; O2SAT 95
[2024-07-10 21:00] VITALS: BP 132/80; TEMP 98.6; O2SAT 98
[2024-07-10] MEDS: ATORVASTATIN 40 MG TABLET PO SCH (21:52)
[2024-07-11 07:58] LABS: BASOPHILS % (AUTO) 0.6 % (0.0-2.0); EOSINOPHILS # (AUTO) 0.3 K/uL (0.0-0.7); EOSINOPHILS % (AUTO) 3.5 % (0.0-6.0); HEMATOCRIT 36 % (33-45); LYMPHOCYTES # (AUTO) 2.5 K/uL (0.8-4.8); LYMPHOCYTES % (AUTO) 31.1 % (20.0-44.0); MEAN CORPUSCULAR HEMOGLOBIN 30 PG (26.0-33.0); MEAN CORPUSCULAR HGB CONC 34 g/dl (31.0-36.0); MEAN CORPUSCULAR VOLUME 90 fL (82-100); MONOCYTES # (AUTO) 0.7 K/uL (0.1-1.30); MONOCYTES % (AUTO) 8.8 % (2.0-12.0); NEUTROPHILS # (AUTO) 4.4 K/uL (1.8-8.9); PLATELET COUNT (AUTO) 182 K/uL (150-450); RED BLOOD CELL COUNT(AUTO) 3.99 MIL/uL (4.0-5.2); RED CELL DISTRIBUTION WIDTH 15.8 % (11.5-15.0); WHITE BLOOD COUNT (AUTO) 7.9 K/uL (4.3-11.0)
[2024-07-11 08:00] VITALS: BP 154/82; TEMP 97.3; O2SAT 94
[2024-07-11 08:52] LABS: ALBUMIN 3.2 g/dL (3.4-5.0); BILIRUBIN,TOTAL 0.3 mg/dL (0.2-1.0); CALCIUM, SERUM 9.2 mg/dL (8.5-10.1); CREATININE 0.9 mg/dL (0.6-1.3); MAGNESIUM 1.9 mg/dL (1.8-2.4); PHOSPHORUS 2.9 mg/dL (2.5-4.9); POTASSIUM 3.6 mmol/L (3.5-5.1); TOTAL PROTEIN, SERUM 7.1 g/dL (6.4-8.2)
[2024-07-11 16:00] VITALS: BP 139/74; TEMP 97.5; O2SAT 94
[2024-07-11 20:00] VITALS: BP 130/79; TEMP 97.9; O2SAT 92
[2024-07-11 21:00] VITALS: BP 128/79; TEMP 98; O2SAT 98
[2024-07-12 08:00] VITALS: BP 140/82; TEMP 97.6; O2SAT 96
[2024-07-12 16:33] VITALS: BP 146/77; TEMP 97.6; O2SAT 96
[2024-07-12 17:12] VITALS: BP 146/77
== END 2024-07-12 17:50 | disposition home health service (06) | DRG 689 ==
LOC: ER 22:42 → MED 07-08 05:16
DX: N39.0 Urinary tract infection, site not specified (principal); G93.41 Metabolic encephalopathy; Z16.12 Extended spectrum beta lactamase (ESBL) resistance; I10 Essential (primary) hypertension; E11.9 Type 2 diabetes mellitus without complications; B96.20 Unspecified Escherichia coli [E. coli] as the cause of diseases classified elsewhere; E66.9 Obesity, unspecified; Z86.73 Personal history of transient ischemic attack (TIA), and cerebral infarction without residual deficits; I25.10 Atherosclerotic heart disease of native coronary artery without angina pectoris; Z95.5 Presence of coronary angioplasty implant and graft; Z87.19 Personal history of other diseases of the digestive system; Z85.42 Personal history of malignant neoplasm of other parts of uterus; Z90.710 Acquired absence of both cervix and uterus; E11.42 Type 2 diabetes mellitus with diabetic polyneuropathy; Z98.890 Other specified postprocedural states; Z79.01 Long term (current) use of anticoagulants; Z79.51 Long term (current) use of inhaled steroids; Z79.4 Long term (current) use of insulin; I65.23 Occlusion and stenosis of bilateral carotid arteries; Z90.49 Acquired absence of other specified parts of digestive tract; I25.2 Old myocardial infarction; I67.2 Cerebral atherosclerosis; E78.5 Hyperlipidemia, unspecified; Z79.899 Other long term (current) drug therapy
CPT/HCPCS: 36415; 70496-TC; 70498-TC; 71045-TC; 80048-TC; 80053-TC; 80061-TC; 80076-TC; 81001; 82607-TC; 82962-TC; 83735-TC; 83921; 84100-TC; 84425; 84443-TC; 84484-TC; 85025-TC; 87040-TC; 87086-TC; 93880-TC; 97110-TC; 97530-TC; A4223; G0378; J0696; J1650; J1815; J7030; J7050; J7060; Q9967